=== PATIENT | female | born 1990 | race African-American/Black ===

== ENCOUNTER 2019-03-09 17:08 | Emergency (ER) | payer OTHER ==
[~2019-03-09] VITALS: Ht 167.6 cm; Wt 69.4 kg
[~2019-03-09 17:08] MED LIST: BACTRIM DS TAB1 EACH PO
[2019-03-09 17:09] VITALS: BP 106/72
[2019-03-09] MEDS ORDERED: MOBIC7.5 MG PO (18:18)
== END 2019-03-09 18:35 | disposition home or self-care (01) ==
LOC: ER 17:08
DX: S93.692A Other sprain of left foot, initial encounter (principal); X50.1XXA Overexertion from prolonged static or awkward postures, initial encounter; Y92.89 Other specified places as the place of occurrence of the external cause; Y93.89 Activity, other specified; Y99.8 Other external cause status